=== PATIENT | female | born 1950 | race Caucasian/White ===

== ENCOUNTER 2023-10-29 06:28 | Day surgery (SDC) | payer MEDICARE ==
[2023-10-25 13:22] VITALS: BP 133/73
[~2023-10-29] VITALS: Ht 162.6 cm; Wt 118.2 kg
[~2023-10-29 06:28] MED LIST: COZAAR100 MG PO; MIDAZOLAM HCL 5 MG/5 ML VIAL IV PRN; fentaNYL citrate 100 MCG/2 ML VIAL IV PRN
[2023-10-29 06:50] VITALS: BP 155/59
[2023-10-29] MEDS ORDERED: LIDOCAINE HCL 1% 5 ML SDV INJ ONE (07:00)
[2023-10-29] MEDS ORDERED: LACTATED RINGER'S 1,000 ML IV SCH (07:00)
[2023-10-29] MEDS ORDERED: IBLOOD GLUCOSE TEST STRIP 1 EA TEST VI PRN (07:00)
[2023-10-29] MEDS ORDERED: COREG6.25 MG PO (07:01)
[2023-10-29] MEDS ORDERED: VITAMIN D250 MC1 (07:01)
--- NOTE | 2023-10-29 07:08 | NUR ---
NO ONE WAITING TO CALL JOSE RAUL WHEN READY FOR RIDE HOME.
[2023-10-29] MEDS ORDERED: propofoL 200 MG/20 ML VIAL ONE (08:28)
[2023-10-29] MEDS ORDERED: LIDOCAINE HCL 2% 5 ML SDV ONE (08:28)
--- NOTE | 2023-10-29 08:40 | NUR ---
0800 UP TO BR. RETURNED TO STRETCHER WARM BLANKETS ON.
[2023-10-29 09:40] VITALS: BP 105/81
--- NOTE | 2023-10-29 09:57 | NUR ---
10/29/23 0957 Sheets,Nubia 0912 PT ARRIVED TO PACU AND WAKES EASILY. VSS. PT DENIES CONCERNS OF PAIN OR NAUSEA. 0915 PT ROLLED TO BACK PER REQUEST. 09 MD AT BEDSIDE TALKING TO PT. 09 HOB INCREASED AND PT SIPPING WATER. PT ENCOURGED TO PASS GAS OFF AND ON. 0945 PT UP TO BATHROOM AND DRESSED HERSELF. PT STEADY ON HER FEET. 0954 DC INSTRUCTIONS GIVEN AND ALL QUESTIONS ANSWERED. PT DC VIA WC TO HER FAMILY.
--- NOTE | 2023-10-29 10:23 | OR ---
[facility] [address], [place] [address] Signed DATE OF OPERATION: 10/29/2023 SURGEON: Triston Vizcarra MD PREOPERATIVE DIAGNOSES: 1. Diminutive polyp at hepatic flexure lost to retrieval in 2019 at age 67. 2. Diverticulosis. POSTOPERATIVE DIAGNOSES: 1. Minimal to moderate sigmoid diverticulosis. 2. Minimal internal hemorrhoids. PROCEDURE: Colonoscopy without biopsy. ESTIMATED BLOOD LOSS: None. INDICATIONS: Bebe is a 72-year-old obese female, asked to see me for followup colonoscopy. She had a colonoscopy in 2005 at the age of [address] Ruiz, was found to have diverticulosis, but no polyps. She went back in 2019 at the age of 67 [address] Ruiz found a diminutive polyp at the hepatic flexure. It was lost to retrieval. Because of this, he asked her to follow up in 5 years. She currently has no lower GI complaints. There is no family history of colon cancer or polyps. She lives [place] the way over in [place], [place], [place] of our hospital. She said she would be staying in a hotel the night before and have her take her home afterwards. In the office, I gave her a pamphlet on colonoscopy. We have reviewed the nature of the test. There is risk including, but not limited to gas bloating, crampy abdominal pain, bleeding, perforation requiring surgery, and missed diagnosis. We also reviewed the written instructions for bowel prep line by line. She also has a very full round face and a very heavy neck, chest and abdomen with an elevated body mass index. Because of this, we asked for monitored anesthesia care with propofol infusion. That worked out very well. She had expressed understanding, wished to proceed. DESCRIPTION OF PROCEDURE: Bebe was taken into our endoscopy suite and placed in the left lateral decubitus position. She was given monitored anesthesia care with propofol infusion per our nurse trash man. A digital rectal exam was performed and this was unremarkable. She had good sphincter tone. Really no external hemorrhoids. No masses. The adult colonoscope Electronically Signed By: TRISTON VIZCARRA MD 10/29/23 1023 PATIENT NAME: BEBE JEAN KEVIN OPERATIVE REPORT DATE OF : 46 REPORT #: [id number] PHYSICIAN: TRISTON VIZCARRA MD PCP: GINETTE COLEMAN MD REPORT IS CONFIDENTIAL AND NOT TO BE RELEASED WITHOUT AUTHORIZATION [facility] [address], [place] [address] Signed was introduced and advanced under direct visualization of camera up into the cecum itself. Her prep was quite excellent. We could easily see the appendiceal orifice and the ileocecal valve. The scope was then slowly withdrawn. She indeed has diverticula in the sigmoid colon. There were few to moderate in number moderate size and scattered about. In the rectum, the scope was retroflexed and she has minimal internal hemorrhoid columns. We found no polyps throughout the entire colon or rectum. After this, the gas was suctioned out and colonoscope removed. Bebe tolerated the procedure quite well. RECOMMENDATIONS: Bebe is welcome to follow up in 10 years for repeat screening colonoscopy so long as her health holds up. Of course, she would be 82 years of age at that time. She would have to discuss that with her primary care provider. Otherwise, she will follow up my office as needed. MD STEVO Jamison/HUMBERTOL /[id number] cc: MD Ginette Barnett MD Andrew L Bower, MD Copies: FRANCISCA VALLADARES MD, SUSAN MD BOWER, ANDREW L MD ~ Electronically Signed By: TRISTON VIZCARRA MD 10/29/23 1023 PATIENT NAME: BEBE JEAN KEVIN OPERATIVE REPORT DATE OF : 46 REPORT #: [id number] PHYSICIAN: TRISTON VIZCARRA MD PCP: GINETTE COLEMAN MD REPORT IS CONFIDENTIAL AND NOT TO BE RELEASED WITHOUT AUTHORIZATION
== END 2023-10-29 09:54 | disposition home or self-care (01) ==
LOC: DS 06:28 → OPS 06:28 → DS 08:45 → OPS 08:45
PROVIDERS: ATTEND Colon & Rectal Surgery
PROC: 0DJD8ZZ Inspection of Lower Intestinal Tract, Via Natural or Artificial Opening Endoscopic (ICD-10-PCS; principal; 2023-10-29 08:45)
DX: K57.30 Diverticulosis of large intestine without perforation or abscess without bleeding (principal); K64.8 Other hemorrhoids; Z86.010 Personal history of colon polyps; I10 Essential (primary) hypertension; E66.9 Obesity, unspecified; Z68.41 Body mass index [BMI] 40.0-44.9, adult; Z79.899 Other long term (current) drug therapy; Z88.2 Allergy status to sulfonamides
CPT/HCPCS: 00811; J2001; J2704; J7121